=== PATIENT | female | born 1980 | race Caucasian/White ===

== ENCOUNTER → 2016-06-30 | Outpatient (CLI) | payer MEDICAID ==
--- NOTE | 2016-06-30 14:26 | US ---
June 30, [address] Dodd, Thank you for requesting consultation and a follow up ultrasound for your patient, Mrs. Jericho yanez. As you know, Bev is a 36 year old G 1, P 0 . Her due date is 08/27/16 by LMP and 13 week ul trasound. Her current gestational age based on this dating is is 31 weeks 5 days. She is seen today for a follow up assessment of growth and to review anatomy. This is complicated by newly diagnosed Type II diabetes while , obesity with BMI of 72, Type I vWF, and newly diagnosed ge stational hypertension. She denies symptoms worrisome for preeclampsia. She reports that her blood pressures have been elevated since last week and continue to be elevated. Her blood sugars have impr jojo. She uses 80 units of Levemir in the am and 90 units in the pm. For her meals, she uses Novolo g at 20 units. She reports that her fastings are in the 90-110 range and post meal 78-105 range. ULTRASOUND Number of fetuses: 1 Placental location: Anterior to fundal presentation: Cephalic Heart Rate: 133 bpm Cervix: Not visualized Maximum Vertical Pocket: 5.0 cm Measurements: Biparietal diameter: 76 mm 30 weeks, 4 days Head circumference: 286 mm 31 weeks, 3 days Abdominal circumference: 295 mm 33 weeks, 4 days Femur length: 61 mm 31 weeks, 4 days Humerus length: 52 mm 30 weeks, 3 days Transcerebellar diameter: 36 mm 30 weeks, 0 days Average age by ultrasound: 31 weeks, 6 days Estimated weight: 1970 gm weight percentile: 62 % ANATOMY anatomy was previously assessed. Today the following structures were visualized and appeared n ormal: Remains suboptimal in visualization secondary to maternal body habitus. The lateral ventricl e, choroids, lip/nose views and RVOT are limited but appear normal today. IMPRESSION: 1. Intrauterine at 31 weeks, 5 days; JOHN of 08/27/16. 2. growth is appropriate size for dates. 3. anatomy was previously assessed and today's ultrasound continues to provide reassurance of normal appearing anatomy. 4. Normal amniotic fluid volume 5. Type II diabetes on insulin 6. Obesity, BMI of 72 7. Gestational hypertension 8. Type I Von Willebrand's Disease RECOMMENDATIONS: I was pleased to review today's ultrasound with your patient. I reassured her that growth is normal at the 62 %ile for this gestational age. The amniotic fluid volume is normal. We performed a review of the anatomy which remains suboptimal for evaluation given maternal body habitus. Bev and I reviewed hypertension in . Currently, she meets the criteria for gestational hypertension and is aware that she is at risk for preeclampsia. Preeclampsia (without severe feature s) and gestational hypertension can be delivered at 37 weeks. Should she have symptoms or blood pres sures in severe range, then a preeclampsia evaluation if recommended and delivery may even need to be considered sooner. She states that she is under weekly surveillance with you and starts NSTs next we ek. Glycemic management has improved, but she very likely needs additional Levemir at night to improve fa sting blood sugar control. In summary, I recommend the followin. Consider weekly HELLP labs. 2. If not done, HbA1c to evaluate senior living control. Increase nightly Levemir. 3. NSTs twice weekly and weekly AKHIL to start next week. 4. Delivery at 37 weeks; earlier if there is indication by severe criteria for preeclampsia. 5. If she remains , recommend growth between 35-36 weeks. Thank you for allowing us the opportunity to evaluate your patient. Should you have any further ques tions or concerns please do not hesitate to contact me. Approximately 25 minutes were spent with the patient and 15 minutes were spent in face to face consu ltation. Katerine Monroe MD [employer] Pickup[employer]Receiving Associate Maternal Medicine Diagnosis Department of Obstetrics & Gynecology [facility]
--- NOTE | 2016-06-30 19:38 | US ---
Follow Up Obstetrical Sonography Clinical History: 36-year-old female with obesity, type 2 diabetes, and gestational hypertension. The patient presents for anatomic screening and biometry. Technique: A curvilinear 5-eg MHz transducer was used to sonographically evaluate the fetus and the placenta. M-mode Doppler is used. Dr. Monroe is present. The anatomic survey is suboptimal secondary the patient's large body habitus. Comparison Study: Obstetrical sonography, dated May 27, 2016. LMP: November 21, 2015, indicating an age of 31 weeks 5 days, and an estimated date of delivery of August 27, 2016. Findings: Again, there is a single viable intrauterine gestation. The fetus is vertex in presentation. The placenta is located anterior to maternal fundal, with no previa. The maternal cervix is not visualized secondary to obscuring by the head and lateness of gestation. The amniotic fluid volume is appropriate, with a maximal vertical pocket of 5.0 cm. The heart rate is 133 bpm. The anatomic survey has been previously evaluated and on today's study the visualized portions of the supra- and infratentorial structures are normal. The cisterna magna measures 6.9 mm. There is limited assessment of the nasal labial anatomy, four-chamber heart and outflow tracts. The biometry is as follows: The biparietal diameter is 76 mm, corresponding to an age of 30 weeks 4 days +/ - 3 weeks 1 day, which is at the 10th percentile. The head circumference is 286 mm corresponding to an age of 31 weeks 3 days +/- 3 weeks 0 days, which is at the 10th percentile. The abdominal circumference is 295 mm corresponding to an age of 33 weeks 4 days +/- 3 weeks 0 days, which is at the 91st percentile. The femur length is 61 mm, corresponding to an age of 31 weeks 4 days +/- 3 weeks 0 days, which is at the 31st percentile. The humeral length is 52 mm, corresponding to an age of 30 weeks 3 days and the transverse cerebellar diameter is 36 mm, corresponding to an age of 30 weeks 0 days +/- 1 week 2 days per composite gestational age of 31 weeks 6 days. The estimated weight is 1970 g +/- 288 g, which is 4 lbs. 5 oz. +/- 10 ounces, which is at the 62nd percentile. The head circumference to abdominal circumference ratio is normal, measuring 0.97. The femur length to biparietal diameter ratio is 80%, and the femur length to abdominal circumference ratio is 21%. Impression: There is a single viable intrauterine gestation with no overt structural anomaly (although the anatomy is very limited secondary to the maternal large body habitus). The fetus demonstrates appropriate interval growth since May 27, 2016. Please also refer to Dr. Monroe separate assessments and specific recommendations for follow-up. VIKKI
== END ==
LOC: FIMAGING 13:14
PROVIDERS: ATTEND Obstetrics & Gynecology
DX: O99.213 Obesity complicating pregnancy, third trimester (principal); O24.414 Gestational diabetes mellitus in pregnancy, insulin controlled; Z68.45 Body mass index [BMI] 70 or greater, adult; O35.2XX1 Maternal care for (suspected) hereditary disease in fetus, fetus 1; D68.0 Von Willebrand disease; Z3A.31 31 weeks gestation of pregnancy

== ENCOUNTER → 2016-07-28 | Outpatient (CLI) | payer MEDICAID | LOC: FIMAGING 12:20 | PROVIDERS: ATTEND Obstetrics & Gynecology | DX: O99.213 Obesity complicating pregnancy, third trimester (principal); O14.93 Unspecified pre-eclampsia, third trimester; O24.913 Unspecified diabetes mellitus in pregnancy, third trimester; Z3A.35 35 weeks gestation of pregnancy ==